=== PATIENT | male | born 2000 | race Caucasian/White ===

== ENCOUNTER 2020-01-08 01:30 | Emergency (ER) | payer OTHER ==
[2020-01-08] MEDS ORDERED: NICOTINE 21 MG/24 HR PATCH.TD24 TD ONE ×2 (02:22→13:45)
--- NOTE | 2020-01-08 02:41 | ER Document Report ---
ED Psych Disorder / Suicide - General Chief Complaint: Suicidal Ideation Stated Complaint: SUICIDAL IDEATIONS Time Seen by Provider: 01/08/20 02:37 TRAVEL OUTSIDE OF THE [place] IN LAST 30 DAYS: No Course - Laboratory Result Diagrams: 01/08/20 02:10 01/08/20 02:10
[2020-01-08 02:44] LABS: ABSOLUTE BASOPHILS # (AUTO) 0.1 10^3/uL (0.0-0.2); ABSOLUTE EOSINOPHILS # (AUTO) 0.2 10^3/uL (0.0-0.6); ABSOLUTE MONOCYTES (AUTO) 0.7 10^3/uL (0.1-1.4); ABSOLUTE NEUT (AUTO) 5.4 10^3/uL (1.7-8.2); BASOPHILS % (AUTO) 0.6 % (0-2); EOSINOPHILS % (AUTO) 2.2 % (0-6); HEMATOCRIT 44.4 % (37.9-51.0); HEMOGLOBIN 15.7 g/dL (13.5-17.0); LYMPHOCYTES % (AUTO) 31.7 % (13-45); MEAN CORPUSCULAR HEMOGLOBIN 29.7 pg (27.0-33.4); MEAN CORPUSCULAR HGB CONC 35.3 g/dL (32.0-36.0); MEAN CORPUSCULAR VOLUME 84 fl (80-97); MONOCYTES % (AUTO) 7.5 % (3-13); PLATELET COUNT 217 10^3/uL (150-450); RED BLOOD COUNT 5.27 10^6/uL (4.35-5.55); RED CELL DISTRIBUTION WIDTH 12.7 % (11.5-14.0); TOTAL CELLS COUNTED % (AUTO) 100 %; WHITE BLOOD COUNT 9.3 10^3/uL (4.0-10.5)
[2020-01-08 03:01] LABS: ALBUMIN 4.9 g/dL (3.7-5.6); ALCOHOL 208 mg/dL (NONE DETECTED); ALKALINE PHOSPHATASE 102 U/L (65-260); ANION GAP 13 (5-19); ASPARTATE AMINO TRANSFERASE 26 U/L (10-45); BILIRUBIN,TOTAL 0.7 mg/dL (0.2-1.3); BLOOD UREA NITROGEN 11 mg/dL (7-20); CALCIUM 9.5 mg/dL (8.4-10.2); CARBON DIOXIDE 25 mmol/L (22-30); CHLORIDE 104 mmol/L (98-107); GLUCOSE 109 mg/dL (75-110); POTASSIUM 3.7 mmol/L (3.6-5.0); TOTAL PROTEIN 7.9 g/dL (6.3-8.2)
[2020-01-08 03:03] LABS: ACETAMINOPHEN < 10 ug/mL (10-30); SALICYLATE < 1.0 mg/dL (2.0-20.0)
[2020-01-08 03:12] LABS: APPEARANCE,URINE CLEAR; BILIRUBIN,URINE NEGATIVE (NEGATIVE); COLOR,URINE YELLOW; GLUCOSE, URINE NEGATIVE (NEGATIVE); KETONES,URINE NEGATIVE (NEGATIVE); LEUKOCYTE ESTERASE,URINE NEGATIVE (NEGATIVE); NITRITE,URINE NEGATIVE (NEGATIVE); PROTEIN,URINE NEGATIVE (NEGATIVE); URINE SPECIFIC GRAVITY 1.012; UROBILINOGEN,URINE NEGATIVE mg/dL (<2.0)
--- NOTE | 2020-01-08 03:27 | RADIOLOGY REPORT (SQ) ---
EXAM DESCRIPTION: X-RAY FOOT THREE OR MORE VIEWS RIGHT CLINICAL HISTORY: injury 1 week ago; pain COMPARISON: None. FINDINGS: AP, lateral and oblique views of the right foot were obtained at 0303 hours on 01/08/2020. There is no discrete acute fracture or dislocation. Bone mineralization is within normal limits. There is no radiopaque foreign body material. IMPRESSION: No acute fracture or dislocation.
[2020-01-08 03:28] LABS: URINE AMPHETAMINES SCREEN NEGATIVE; URINE BARBITURATES SCREEN NEGATIVE; URINE BENZODIAZEPINES SCREEN NEGATIVE; URINE COCAINE SCREEN NEGATIVE; URINE MARIJUANA (THC) SCREEN NEGATIVE; URINE METHADONE SCREEN NEGATIVE; URINE PHENCYCLIDINE SCREEN NEGATIVE
[2020-01-08] MEDS ORDERED: LORAZEPAM 1 MG TABLET PO ONE (05:19)
--- NOTE | 2020-01-08 06:52 | ER Document Report ---
Entered by KATELYN FLORES SCRIBE 01/08/20 0511 Acting as scribe for:TANNER YOUNG MD ED Psych Disorder / Suicide - General Chief Complaint: Suicidal Ideation Stated Complaint: SUICIDAL IDEATIONS Time Seen by Provider: 01/08/20 02:37 Mode of Arrival: Medic Information source: Patient, Parent - Mom and Dad, Emergency Med Personnel Notes: This 19 year old male patient brought in by EMS presents to the ED today with complaints of suicidal and homicidal ideation. Patient states that he has had suicidal ideation for the past x3 years, but that he has not acted on it. Patient states that he came to the ED today for right foot pain that started from an unknown injury while drinking x1 week ago. Patient states that his "liver's not feeling good" and that he is an alcoholic. Patient notes that he drinks to "quell the thoughts". Patient states that he has done cocaine and acid in the past and that he still feels like he is "tripping on acid". Mom reports that the patient has been seeing demons for over a year and that she tried to get him help. Dad states that the patient was seen at his PCP who stated the patient's "liver is messed up...belongs to a 40 year old". Mom notes that the patient is concerned that he is going to hurt someone, so that's why he wants to kill himself. ED nurse reports that the patient stated "I am only staying long enough to see my parents then I'm checking myself out and going home to do something stupid." When asked by Emily Cesar RN why he called the lunchroom operator and told them he wanted to kill himself patient states, "I am mentally unstable, I am on an acid trip for like a year." "I just wanted to see my parents one last time, because Venkat has got to do what Venkat has got to do." Patient when asked about his plan on how to harm himself states, "I'm not going to tell people what I am going to do or what I am trying to do, because I am just going to do it." Patient repeatedly states he is going to kill him to staff in the room per ED nurse. TRAVEL OUTSIDE OF THE [place] IN LAST 30 DAYS: No - Related Data Allergies/Adverse Reactions: No Known Allergies Allergy (Unverified 01/08/20 06:07) Past Medical History - General Information source: Patient, Parent - Mom and Dad, Emergency Med Personnel - Social History Smoking Status: Current Every Day Smoker Cigarette use (# per day): Yes Chew tobacco use (# tins/day): No Smoking Education Provided: No Frequency of alcohol use: Heavy Drug Abuse: Cocaine, Marijuana Family History: Reviewed & Not Pertinent Patient has suicidal ideation: Yes Patient has homicidal ideation: Yes Review of Systems - Review of Systems Constitutional: No symptoms reported EENT: No symptoms reported Cardiovascular: See HPI. denies: Chest pain Respiratory: No symptoms reported Gastrointestinal: No symptoms reported Genitourinary: No symptoms reported Male Genitourinary: No symptoms reported Musculoskeletal: See HPI, Other - Right foot pain Skin: No symptoms reported Hematologic/Lymphatic: No symptoms reported Neurological/Psychological: See HPI, Hallucinations, Homicidal ideation, Suic idal ideation -: Yes All other systems reviewed and negative Physical Exam - Vital signs Vitals: Temp Pulse Resp BP Pulse Ox 98.7 F 121 H 20 153/115 H 98 01/08/20 01:59 01/08/20 01:59 01/08/20 01:59 01/08/20 01:59 01/08/20 01:59 Interpretation: Hypertensive, Tachycardic - General General appearance: Alert, Other - Tremulous. Nicotine patch on left side of neck. In distress: None - HEENT Head: Normocephalic, Atraumatic Eyes: Normal Pupils: PERRL - Respiratory Respiratory status: No respiratory distress Chest status: Nontender Breath sounds: Normal Chest palpation: Normal - Cardiovascular Rhythm: Regular Heart sounds: Normal auscultation Murmur: No - Abdominal Inspection: Normal Distension: No distension Bowel sounds: Normal Tenderness: Nontender Organomegaly: No organomegaly - Back Back: Normal, Nontender - Extremities General upper extremity: Normal inspection General lower extremity: Normal inspection - Neurological Neuro grossly intact: Yes - Psychological Associated symptoms: Normal affect, Normal mood - Skin Skin Temperature: Warm Skin Moisture: Dry Skin Color: Normal Course - Vital Signs Vital signs: Temp Pulse Resp BP Pulse Ox 98 F 99 H 14 140/84 H 99 01/08/20 06:13 01/08/20 06:13 01/08/20 06:13 01/08/20 06:13 01/08/20 06:13 01/08/20 05:27 Sinus tachycardia noted. Systolic and diastolic hypertension. - Laboratory Result Diagrams: 01/08/20 02:10 01/08/20 02:10 Laboratory results interpreted by me: 01/08/20 02:10 Salicylates < 1.0 L Acetaminophen < 10 L 01/08/20 05:26 Laboratories show an alcohol level of greater than 200 rest of the labs were within normal limits. - Diagnostic Test Radiology reviewed: Image reviewed, Reports reviewed Radiology results interpreted by me: 01/08/20 05:26 X-ray of right foot disclose no acute fracture or any other bony abnormalities no soft tissue swelling. - EKG Interpretation by Me Additional EKG results interpreted by me: 01/08/20 05:25 Twelve-lead EKG 01/08/2020 at 252 shows normal sinus rhythm rate of 98 probable left atrial abnormality otherwise no acute process. Discharge - Discharge Clinical Impression: Suicidal ideation, Alcoholism /alcohol abuse Condition: Stable Disposition: PSYCH HOSP/UNIT I personally performed the services described in the documentation, reviewed and edited the documentation which was dictated to the scribe in my presence, and it accurately records my words and actions.
--- NOTE | 2020-01-08 10:55 | ER Document Report ---
Doctor's Note Notes: 01/08/20 10:54 PHYSICAL EXAMINATION: GENERAL: Appears well, healthy, well-nourished, no acute distress. LUNGS: Equal breath sounds bilaterally and clear to auscultation. No wheezes rales or rhonchi. CARDIOVASCULAR: S1-S2, regular rate, regular rhythm. Radial pulses 2+, normal. ABDOMEN: Normoactive bowel sounds. Soft, nontender, no guarding, no rebound tenderness, and no masses palpated. PSYCH: Sleepy, only slightly talkative. At this time, the patient denies any suicidal or homicidal ideation. Plan is to continue to reevaluate the patient and get him on medications per psych recommendations.
--- NOTE | 2020-01-08 11:53 | EKG REPORT ---
SEVERITY:- BORDERLINE ECG - SINUS RHYTHM PROBABLE LEFT ATRIAL ABNORMALITY : Confirmed by: Kylie Prabhakar 08-Jan-2020 11:53:06
[2020-01-08] MEDS ORDERED: HALOPERIDOL 5 MG TABLET PO ONE (12:59)
[2020-01-08] MEDS ORDERED: DIPHENHYDRAMINE HCL 25 MG CAPSULE PO ONE (13:22)
--- NOTE | 2020-01-08 15:56 | RADIOLOGY REPORT (SQ) ---
EXAM DESCRIPTION: CT HEAD WITHOUT COMPLETED DATE/TIME: 01/08/2020 3:37 pm REASON FOR STUDY: eval mass COMPARISON: None. TECHNIQUE: Axial images acquired through the brain without intravenous contrast. Images reviewed wi th bone, brain and subdural windows. Additional sagittal and coronal reconstructions were generated. Images stored on PACS. All CT scanners at this facility use dose modulation, iterative reconstruction, and/or weight based d osing when appropriate to reduce radiation dose to as low as reasonably achievable (ALARA). [facility]: Dose Right [facility]: CareDose [facility]: Dose Right [facility]: Teradose 4D [facility]: Smart Qinging Weekly [employer] RADIATION DOSE: CT Rad equipment meets quality standard of care and radiation dose reduction techniq ues were employed. CTDIvol: 53.2 mGy. DLP: 964 mGy-cm. mGy. LIMITATIONS: None. FINDINGS: VENTRICLES: Normal size and contour. CEREBRUM: No masses. No hemorrhage. No midline shift. No evidence for acute infarction. Normal gra y/white matter differentiation. No areas of low density in the white matter. CEREBELLUM: No masses. No hemorrhage. No alteration of density. No evidence for acute infarction. EXTRAAXIAL SPACES: No fluid collections. No masses. ORBITS AND GLOBE: No intra- or extraconal masses. Normal contour of globe without masses. CALVARIUM: No fracture. PARANASAL SINUSES: No fluid or mucosal thickening. SOFT TISSUES: No mass or hematoma. OTHER: No other significant finding. IMPRESSION: NORMAL BRAIN CT WITHOUT CONTRAST. There is no mass to evaluate on noncontrast CT. EVIDENCE OF ACUTE STROKE: NO. COMMENT: Quality ID # [id number]: Final reports with documentation of one or more dose reduction techniques (e.g., Automated exposure control, adjustment of the mA and/or kV according to patient size, use of iterative reconstruction technique) TECHNICAL DOCUMENTATION: JOB ID: [id number] 2010 [employer]- All Rights Reserved Reading location - IP/workstation name: [email or web address]
[2020-01-08] MEDS ORDERED: BENZTROPINE MESYLATE 1 MG TABLET PO SCH (19:00)
[2020-01-09 08:42] VITALS: BP 127/81
--- NOTE | 2020-01-09 08:52 | ER Document Report ---
Doctor's Note Notes: 01/09/20 08:52 Chart reviewed patient rounded on. here to transport patient. Patient agrees with transfer is cooperative. PHYSICAL EXAMINATION: GENERAL: Well-appearing and in no acute distress HEAD: Atraumatic, normocephalic. EYES: extraocular movements intact, sclera anicteric, conjunctiva are normal. ENT: nares patent, . Moist mucous membranes. NECK: Normal range of motion, supple without lymphadenopathy LUNGS: Respiratory rate even unlabored HEART: Regular rate ABDOMEN: Denies pain EXTREMITIES: Normal range of motion NEUROLOGICAL: Cranial nerves grossly intact. PSYCH: Normal mood, normal affect. SKIN: Warm, Dry, normal turgor
[2020-01-09] MEDS ORDERED: HALOPERIDOL 5 MG TABLET PO SCH (10:00)
== END 2020-01-09 09:02 ==
LOC: ER 01:30
DX: R45.851 Suicidal ideations (principal); F10.20 Alcohol dependence, uncomplicated; R45.850 Homicidal ideations; M79.671 Pain in right foot; F14.10 Cocaine abuse, uncomplicated; F12.10 Cannabis abuse, uncomplicated; F17.210 Nicotine dependence, cigarettes, uncomplicated; R44.3 Hallucinations, unspecified; R00.0 Tachycardia, unspecified; I10 Essential (primary) hypertension
CPT/HCPCS: 36415; 70450; 80053; 80307; 81001; 83690; 85025; 93005; 93010; 99285